=== PATIENT | male | born 1975 | race Two or more races ===

== ENCOUNTER 2024-08-06 13:21 | Emergency (ER) | payer OTHER ==
[~2024-08-06] VITALS: Ht 165.1 cm; Wt 68.0 kg
[2024-08-06] MEDS ORDERED: VALACYCLOVIR1000 MG PO (14:24)
[2024-08-06] MEDS ORDERED: ZOVIRAX5 GM TOP (14:24)
== END 2024-08-06 14:40 | disposition home or self-care (01) ==
LOC: ER 13:23
DX: B02.9 Zoster without complications (principal); R21 Rash and other nonspecific skin eruption

== ENCOUNTER 2025-04-30 19:55 | Emergency (ER) | payer OTHER ==
[~2025-04-30] VITALS: Ht 165.1 cm; Wt 113.4 kg
[~2025-04-30 19:55] MED LIST: VALACYCLOVIR1000 MG PO; ZOVIRAX5 GM TOP
[2025-04-30] MEDS ORDERED: ENALAPRILAT DIHYDRATE 1.25 MG/ML VIAL IV ONE (22:45)
[2025-04-30] MEDS ORDERED: ORPHENADRINE CITRATE 30 MG/ML AMPUL IM ONE (22:45)
[2025-04-30] MEDS ORDERED: ACETAMINOPHEN 500 MG GEL..CAP PO ONE (22:45)
[2025-04-30] MEDS ORDERED: DEXAMETHASONE SODIUM PHOSPHATE 4 MG/ML VIAL IM ONE (22:45)
[2025-05-01] MEDS ORDERED: ACETAMINOPHEN 500 MG GEL..CAP PO ONE (00:19)
[2025-05-01] MEDS ORDERED: ORPHENADRINE CITRATE 30 MG/ML AMPUL ONE (00:19)
[2025-05-01] MEDS ORDERED: ENALAPRILAT DIHYDRATE 1.25 MG/ML VIAL IV ONE (00:20)
[2025-05-01] MEDS ORDERED: DEXAMETHASONE SODIUM PHOSPHATE 4 MG/ML VIAL ONE (00:20)
[2025-05-01] MEDS ORDERED: NORFLEX100MG PO (02:00)
== END 2025-05-01 03:33 | disposition home or self-care (01) ==
LOC: ER 19:56
DX: R07.89 Other chest pain (principal)